=== PATIENT | female | born 1960 | race Caucasian/White ===

== ENCOUNTER 2023-01-06 16:22 | Outpatient (RCR) | payer OTHER, BC, SELFPAY | END 2023-01-30 23:59 | disposition home or self-care (01) | LOC: SPT 16:22 | PROVIDERS: PCP Registered Nurse; Visit Provider Orthopaedic Surgery | DX: Z47.1 Aftercare following joint replacement surgery (principal); Z96.651 Presence of right artificial knee joint | CPT/HCPCS: 97032; 97110; 97161 ==

== ENCOUNTER 2023-01-07 01:27 | Emergency (ER) | payer OTHER, BC, MEDICAID, SELFPAY ==
[2023-01-07 01:36] VITALS: BP 144/81; PULSE 66; RESP 18; TEMP 36.4; O2SAT 96; BMI 28.7
--- NOTE | 2023-01-07 01:37 | USR_ITS ---
PROCEDURE INFORMATION: Exam: US Duplex Right Lower Extremity Veins, Limited Exam date and time: 01/07/2023 1:50 AM Age: 62 years old Clinical indication: Pain; Leg, lower; Prior surgery; Surgery date: 3-7 days post-operative; Surgery type: Right total knee 01/04/2023; Additional info: Swelling TECHNIQUE: Imaging protocol: Real-time duplex ultrasound of the right extremity with 2-D millan scale, color Doppler flow and spectral waveform analysis including responses to compression and other maneuvers (when performed) with image documentation. Limited exam was focused on the right lower extremity veins. COMPARISON: No relevant prior studies available. FINDINGS: Right deep veins: Unremarkable. The common femoral, femoral, proximal profunda femoral and popliteal veins are patent without thrombus. Normal Doppler waveforms. Normal compressibility and/or augmentation response. Right superficial veins: Unremarkable. Saphenofemoral junction is patent without thrombus. Soft tissues: Unremarkable. US/[place] [id number] IMPRESSION: No evidence of deep vein thrombosis.
--- NOTE | 2023-01-07 02:21 | W.ED.EXTPRO ---
HPI - Extremity Problem General: Chief complaint: Extremity Injury, Lower Stated complaint: possible blood clot, fever Time Seen by Provider: 01/07/23 01:47 History of Present Illness: Patient is in today for postoperative knee pain. She reports that she had total knee replacement surgery 2 days ago. She states that she is sensitive to pain medications and was sent home with tramadol. She states that tramadol is not really controlling her pain and today she started having extreme pain to the right knee. She states that she went ahead and went to her physical therapy appointment hoping that they could help her with the pain and physical therapist that they could not do anything because it was so swollen. She did call her surgeon and [facility] who advised that she needed to go and be evaluated by ultrasound to make sure she did not have a blood clot. She went to [facility] in [place]. She was seen in the ER and had lab work done and she was treated for pain with Toradol and hydrocodone. She reports that they did not have ultrasound capability. She states that they evaluated her and they called and spoke with Dr. Land at this ER and arrange for her to be transferred private vehicle here to have an ultrasound done. Patient states that she has had a fever today but none other that she knows of. She reports her pain currently an 8 on a 0-to-10 scale. Associated symptoms: Reports fever(s) (States 1 reading of 99.8 at home); Deny chest pain Review of Systems Const: Reports: fever(s) (States 1 reading of 99.8 at home); Denies: chills Card: Denies: chest pain, palpitations or irregular heart rhythm Resp: Denies: dyspnea, productive cough or non-productive cough GI: Denies: abdominal pain, nausea or vomiting Musc: Reports: extremity pain, extremity swelling, joint pain, joint swelling, joint redness and joint warmth Skin/Breast: Reports: erythema Physical Exam Const: COMMON NORMALS: no acute distress, patient oriented x3 and alert OTHER: Patient is in apparent pain Neck/C-Spine: COMMON NORMALS: no JVD Resp: COMMON NORMALS: normal respiratory effort, No use of accessory muscles and clear to auscultation bilaterally AUSCULTATION: clear to auscultation bilaterally Cardio: COMMON NORMALS: no JVD, regular rate, regular rhythm, S1 normal heart sound present, S2 normal heart sound present and No murmurs present (Cardio) RATE: regular rate RHYTHM: regular rhythm HEART SOUNDS: S1 normal heart sound present and S2 normal heart sound present Extremity: NARRATIVE EXTREMITY EXAM: There is a postsurgical Tegaderm in place to the right knee. There is moderate swelling to the right mid anterior thigh ankle. The most swelling is about the right knee. There is tenderness to palpation right calf, popliteal region and bilateral sides of the right knee. Pedal pulses palpable. Cap refill is normal. There is moderate erythema and warmth to the right anterior knee. Neuro: COMMON NORMALS: patient oriented x3 SENSORIUM/ORIENTATION: Yes alert Course Vital Signs: Vital signs: Vital Signs Temperature 97.6 F 01/07/23 01:36 Pulse Rate 66 01/07/23 01:36 Respiratory Rate 18 01/07/23 01:36 Blood Pressure 144/81 01/07/23 01:36 Pulse Oximetry 96 01/07/23 01:36 MDM - Extremity (Nontraumatic) Medical Decision Making Patient is postop right knee replacement 2 days ago by orthopedic surgeon in [facility]. Patient started having uncontrolled pain today and called her orthopedic surgeon who advised her to go to the nearest [facility]. Patient went to [place] and was seen in the ER there. She reports that she had blood work and was treated for pain but they were unable to perform the ultrasound to rule out a DVT. She reports that they transferred her to this hospital. Labs at [facility] show a minimally elevated white blood cell count however provider there notes that this is improved from 2 days ago. D-dimer is elevated however patient is newly postop. Ultrasound?preliminary report shows negative for DVT. Patient is on a 14-day course of antibiotics prescribed by her orthopedic surgeon. She reports a single fever at home today with a temp of 99.8. [place] ER note she was afebrile and she has been afebrile here. She reports that the ER physician in [place] prescribed her pain medication and Zofran. 1 dose of hydrocodone was given in this ER tonight and she reports that it is helping the pain somewhat. Patient is being discharged home in stable condition. She is advised to call her surgeon first thing in the morning to arrange follow-up. Discharge Plan Discharge Patient Disposition: Home Clinical Impression: Acute postoperative pain of knee Condition: Stable Discharge Orders: Discharge ED (Routine); Ordered 01/07/23 Ordered By: Miriam Stock Referrals: Sonia Hartley [Primary Care Provider] - Discharge Diet: Usual diet Discharge Activity: Limit activity as instructed Activity Restrictions/Additional Instructions: Continue medications as previously prescribed by your surgeon. Use the pain medication prescribed by your ER physician in [place]. Your ultrasound did not show any evidence of a blood clot. You are already on antibiotic to cover for any infection. Call your surgeon first thing in the morning to arrange follow-up. Return to ER as needed for new or worsening symptoms Coding Level of Care Code ED Air Hoist Operator for Maribel Qureshi
[2023-01-07] MEDS: HYDROcodone-acetaminophen 5-325 mg Tablet 1 TAB PO (02:43)
[2023-01-07] MEDS: ondansetron 4 MG Tablet PO (02:43)
[2023-01-07 03:12] VITALS: BP 135/70; PULSE 70; RESP 16; O2SAT 96
== END 2023-01-07 03:13 | disposition home or self-care (01) ==
PROVIDERS: Emergency Provider Nurse Practitioner Family; PCP Registered Nurse
DX: G89.18 Other acute postprocedural pain (principal); M25.561 Pain in right knee
CPT/HCPCS: 93971; 99284; Q0162

== ENCOUNTER 2023-01-31 06:00 | Outpatient (RCR) | payer OTHER, BC, MEDICAID, SELFPAY | END 2023-03-02 23:59 | disposition home or self-care (01) | LOC: SPT 06:00 | PROVIDERS: PCP Registered Nurse; Visit Provider Orthopaedic Surgery | DX: Z47.1 Aftercare following joint replacement surgery (principal); Z96.652 Presence of left artificial knee joint | CPT/HCPCS: 97110 ==

== ENCOUNTER 2023-12-21 08:33 | Emergency (ER) | payer OTHER, BC, MEDICAID, SELFPAY ==
[2023-12-21 08:35] VITALS: BP 186/98; PULSE 70; O2SAT 100; BMI 29.0
[2023-12-21 08:43] VITALS: TEMP 36.4
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
--- NOTE | 2023-12-21 08:48 | XR_ITS ---
WS: [id number] Portable AP upright chest, 12/21/2023 Clinical Data: dyspnea/cough Comparison: Portable chest, 01/14/2015 Findings: No nodules, masses or effusions are seen. The heart is normal. The pulmonary vascularity is not increased. No pneumonia or pneumothorax is seen. Impression: Negative chest.
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
[2023-12-21 09:12] LABS: Basophils # 0.1 10^3/uL (0.0-0.1); Basophils % 1.7 %; Eosinophils # 0.3 10^3/uL (0.0-0.8); Eosinophils % 4.7 %; Hematocrit 43.1 % (36-47); Lymphocytes # 3.2 10^3/uL (0.8-4.8); Lymphocytes % 56.1 %; Mean Corpuscular HGB Conc 32.9 g/dL (30-55); Mean Corpuscular Hemoglobin 30.9 pg (27-33); Mean Corpuscular Volume 93.9 fl (85-98); Mean Platelet Volume 10.5 fL (7.4-10.4); Monocytes # 0.7 10^3/uL (0.2-0.9); Monocytes % 12.4 %; Neutrophils # 1.42 10^3/uL (1.8-7.7); Neutrophils % 24.9 %; Nucleated Red Blood Cells % 0 %; Platelet Count 253 10^3/cmm (157-399); Red Blood Count 4.59 10^6/uL (3.85-5.65); Red Cell Distribution Width 12.8 % (12.1-15.1); White Blood Count 5.72 10^3/uL (3.29-11.43)
[2023-12-21 09:39] LABS: Alanine Aminotransferase 16 U/L (0-33); Albumin Level 4.3 g/dL (3.5-5.2); Alkaline Phosphatase 72 U/L (35-105); Anion Gap 13.7 (5-19); Aspartate Amino Transferase 19 U/L (0-32); Blood Urea Nitrogen 11 mg/dL (8-23); Calcium 9.3 mg/dL (8.5-10.5); Carbon Dioxide 24 mmol/L (22-29); Chloride 105 mmol/L (98-107); Creatinine Clr Calc Pharmacy 66.0089; Globulin 2.8 g/dL (1.3-4.6); Glomerular Filtration Rate 72.9 mL/min (90-130); Glucose 87 mg/dL (65-115); Osmolality Calculated 287 mOsm/kg (285-295); Potassium 3.7 mmol/L (3.5-5.1); Sodium 139 mmol/L (136-145); Total Bilirubin 0.3 mg/dL (0.15-1.2); Total Protein 7.1 g/dL (6.6-8.7)
[2023-12-21 10:03] LABS: Add Urine Microscopic? NO; Charge for UA Resulting for Rev
[2023-12-21 10:30] LABS: Bilirubin Urine Neg (Negative); Blood Urine Neg (Negative); Glucose Urine UA Norm (Normal); Ketones Urine Negative (Negative); Leukocyte Esterase Urine Negative (Negative); Nitrate Urine Negative (Negative); Protein Urine Neg (Negative); Specific Gravity, Urine 1.005 (1.005-1.030); Urine Appearance Clear (CLEAR); Urine Color Light yellow (Yellow); Urobilinogen Urine Norm (Negative); pH Urine 7 (5-7)
--- NOTE | 2023-12-21 10:32 | PC.PHAR ---
PT SAYS SHE CAN'T TAKE OPIOID PAIN MEDICATIONS SUCH MORPHINE, OXYCODONE, AND HYDROCODONE.
[2023-12-21 11:07] VITALS: BP 143/90; PULSE 58; O2SAT 99
== END 2023-12-21 10:45 | disposition home or self-care (01) ==
PROVIDERS: Emergency Provider Family Medicine; PCP Registered Nurse
DX: S06.0XAA Concussion with loss of consciousness status unknown, initial encounter (principal); V89.2XXA Person injured in unspecified motor-vehicle accident, traffic, initial encounter
CPT/HCPCS: 70450; 71045; 72125; 80053; 81003; 85025; 99284